=== PATIENT | female | born 1990 | race American Indian/Alaskan Native ===

== ENCOUNTER 2020-01-18 21:15 | Emergency (ER) | payer MEDICAID, OTHER ==
[2020-01-18 21:51] VITALS: BP 152/91
[2020-01-18] MEDS ORDERED: BALANCED SALT IRRIG 1 DROPS, TETRACAINE 0.5% 1 DROPS, FLUORESCEIN 1 MG OD ONE (22:46)
[2020-01-18] MEDS ORDERED: FLUORESCEIN 1 MG STRIP OP ONE (22:51)
[2020-01-18] MEDS ORDERED: TETRACAINE 0.5% OPHTH SOLN 4ML ONE (22:51)
--- NOTE | 2020-01-18 23:47 | Emergency Department Report ---
ED Eye Problem HPI - General Chief complaint: Eye Problems Stated complaint: TENDER PAIN IN RT EYE,RED DOTS IN VISION Time Seen by Provider: 01/18/20 22:43 Source: patient Mode of arrival: Ambulatory Limitations: No Limitations - History of Present Illness Initial comments: 29-year-old female with no significant past medical history presents to the hosp ital planing of right eye pain and blurred vision as well as intermittent right ear tinnitus. Patient has had periorbital tenderness to her right eye for the past 4 days. Pain worse with movement of eye in any direction with exception of looking straight. Patient started seeing red dots in her visual field today and having intermittent blurry vision. She does not wear glasses or contacts. No trauma reported. Patient states that for the last 2 years she has had intermittent ringing to the right ear which has not been investigated by a physician/ENT doctor. Ringing is becoming more persistent and occurring more frequently. No reports of fever. She reports that her mother has had an aneurysm and that is why she is concerned about her current symptom. Patient reports having a headache that lasted for about an hour about 3 days ago and denies current or recurrent headache. - Related Data Home Medications Medication Instructions Recorded Confirmed Last Taken Pnv with Ca,No.72/Iron/FA 1 tab PO DAILY 12/21/13 12/21/13 12/19/13 08:00 [ Plus Tablet] 1 tab Previous Rx's Medication Instructions Recorded Last Taken Type Ferrous Sulfate [Feosol 325 MG tab] 325 mg PO BID #60 tablet 12/22/13 Unknown Rx Ibuprofen [Motrin 600 MG tab] 800 mg PO Q8H PRN #30 tablet 12/22/13 Unknown Rx Vit-Fe Fumar-FA [ 1 each PO QDAY #30 tablet 12/22/13 Unknown Rx Vitamin] Allergies Allergy/AdvReac Type Severity Reaction Status Date / Time ketazolam AdvReac Intermediate Shortness Unverified 12/21/13 10:51 of Breath sulfamethoxazole AdvReac Intermediate Hives Unverified 12/21/13 10:50 [From Bactrim] trimethoprim [From Bactrim] AdvReac Intermediate Hives Unverified 12/21/13 10:50 ED Review of Systems ROS: Stated complaint: TENDER PAIN IN RT EYE,RED DOTS IN VISION Other details as noted in HPI Comment: All other systems reviewed and negative ED Past Medical Hx - Past Medical History Previous Medical History?: Yes Hx Hypertension: No Hx Congestive Heart Failure: No Hx Diabetes: No Hx Deep Vein Thrombosis: No Hx Renal Disease: No Hx Sickle Cell Disease: No Hx Seizures: No Hx Asthma: No Hx COPD: No Hx HIV: No Additional medical history: Ringing In ears. - Surgical History Past Surgical History?: Yes Additional Surgical History: Bilateral Breast Reduction. - Social History Smoking Status: Former Smoker Substance Use Type: Alcohol - Medications Home Medications: Home Medications Medication Instructions Recorded Confirmed Last Taken Type Pnv with Ca,No.72/Iron/FA 1 tab PO DAILY 12/21/13 12/21/13 12/19/13 08:00 History [ Plus Tablet] 1 tab Ferrous Sulfate [Feosol 325 MG tab] 325 mg PO BID #60 tablet 12/22/13 Unknown Rx Ibuprofen [Motrin 600 MG tab] 800 mg PO Q8H PRN #30 tablet 12/22/13 Unknown Rx Vit-Fe Fumar-FA [ 1 each PO QDAY #30 tablet 12/22/13 Unknown Rx Vitamin] ED Physical Exam - General Limitations: No Limitations - Other Other exam information: General: No acute distress Head: Atraumatic Eyes: normal appearance, no conjunctival injection, pupils equal reactive to light, extraocular movements intact, no fluorescein uptake with staining, mild periorbital tenderness without edema or erythema. Visual acuity right eye 20/25, left eye 20/20, bilateral 20/20 ENT: Moist mucous membranes, bilateral TM normal with good light reflex without erythema or fluid Neck: Normal appearance, no midline tenderness, no nuchal rigidity Chest: Clear to auscultation bilaterally CV: Regular rate and rhythm Abdomen: Soft, normal bowel sounds, nontender, nondistended, no rebound or gu arding Back: Normal inspection Extremity: Normal inspection, full range of motion Neuro: Alert O x 3, no facial asymmetry, speech clear, no gross motor sensory deficit Psych: Appropriate behavior Skin: No rash ED Course Vital Signs 01/18/20 01/18/20 01/18/20 21:44 22:07 23:05 Temperature 98.5 F 98.5 F Pulse Rate 94 H 96 H Respiratory 18 18 18 Rate Blood Pressure 152/91 152/91 O2 Sat by Pulse 100 100 100 Oximetry ED Medical Decision Making - Radiology Data Radiology results: report reviewed CT HEAD WITHOUT CONTRAST HISTORY: MAIN: ringing right ear, intermittent HEADACHE COMPARISON: None TECHNIQUE: CT imaging of the head was performed in the axial, sagittal, and coronal projections and bone algorithm in axial projection in the soft tissue algorithm. All CT scans at this location are performed using CT dose reduction for ALARA by means of automated exposure control. CONTRAST: None. FINDINGS: Cerebral and Cerebellar Hemispheres: No evidence of mass or mass effect. No midline shift. No acute hemorrhage. No acute cortical infarction. No extra-axial fluid collection. Ventricles: Normal in size and configuration for age. Osseous Structures: No significant abnormality. Visualized Paranasal Sinuses: No significant abnormality. Additional Findings: None IMPRESSION: 1. No acute intracranial abnormality. NOTE: Acute infarct may not be visible by noncontrast CT. CLINICAL DATA: MAIN: right eye pain with movement, HEADACHES TECHNICAL DATA: CT imaging of the orbits was performed without intravenous contrast with reformations in the axial, sagittal, and coronal imaging planes using both soft tissue and bone algorithm.All CT scans at this location are performed using CT dose reduction for ALARA by means of automated exposure control FINDINGS: The orbital uribe appear to be intact. There is no evidence of zygomatic arch fracture. The surrounding paranasal sinuses are well aerated. There is no evidence of a fracture or dislocation. The bony architecture is normal. IMPRESSION: Normal CT of the orbits without intravenous contrast. If clinical symptoms persist MR of the orbits with contrast is recommended. - Medical Decision Making No gross abnormality identified on noncontrast CT head or orbits. Patient does not have fever or clinical symptoms of cellulitis. Patient reports blurry vision with affected eye 20/25 vision and no fluorescein uptake. Unfortunate is unable to obtain eye pressures due to malfunctioning Memo-Pen. Patient clinically does not have symptoms of acute closed angle glaucoma. Patient will be instructed to follow-up with ophthalmology and ENT for further outpatient work-up. She declined offer for pain medication in the ED will be instructed take [id number] medicine as needed for pain - Differential Diagnosis Optic neuritis, retro-orbital mass, periorbital cellulitis, intracranial le Critical Care Time: No Critical care attestation.: If time is entered above; I have spent that time in minutes in the direct care of this critically ill patient, excluding procedure time. ED Disposition Clinical Impression: Pain in periorbital region of right eye, Tinnitus, right ear Disposition: TO HOME OR SELFCARE Is pt being admited?: No Does the pt Need Aspirin: No Condition: Stable Instructions: Eye Pain (ED), Earache (ED) Additional Instructions: Take [id number] medication as needed for pain. follow-up with your doctor or doctor/clinic provided. 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 Return if symptoms worsen as indicated by your discharge instructions. Referrals: PRIMARY CARE, [Primary Care Provider] - 3-5 Days MARLENE MAGAÑA MD [Staff Physician] - 3-5 Days (Primary care doctor) MOR BERGMAN MD [Staff Physician] - 3-5 Days (Eye doctor) ALCON AL MD [Staff Physician] - 3-5 Days (Eye doctor) OCTAVIANO LARSON MD [Staff Physician] - 3-5 Days (Eye doctor) ANGELICA HANKS MD [Staff Physician] - 3-5 Days (Ear nose and throat doctor) Time of Disposition: 00:46
--- NOTE | 2020-01-19 00:37 | Cat Scan Report ---
CT HEAD WITHOUT CONTRAST HISTORY: MAIN: ringing right ear, intermittent HEADACHE COMPARISON: None TECHNIQUE: CT imaging of the head was performed in the axial, sagittal, and coronal projections and bone algori thm in axial projection in the soft tissue algorithm. All CT scans at this location are performed using CT dose reduction for ALARA by means of automated e xposure control. CONTRAST: None. FINDINGS: Cerebral and Cerebellar Hemispheres: No evidence of mass or mass effect. No midline shift. No acute hemorrhage. No acute cortical infarction. No extra-axial fluid collection. Ventricles: Normal in size and configuration for age. Osseous Structures: No significant abnormality. Visualized Paranasal Sinuses: No significant abnormality. Additional Findings: None IMPRESSION: 1. No acute intracranial abnormality. NOTE: Acute infarct may not be visible by noncontrast CT. Signer Name: Donny Michele MD Signed: 01/19/2020 12:33 AM Workstation Name: [id number]
--- NOTE | 2020-01-19 00:39 | Cat Scan Report ---
CLINICAL DATA: MAIN: right eye pain with movement, HEADACHES TECHNICAL DATA: CT imaging of the orbits was performed without intravenous contrast with reformations in the axial, s agittal, and coronal imaging planes using both soft tissue and bone algorithm.All CT [facility] are performed using CT dose reduction for ALARA by means of automated exposure control FINDINGS: The orbital uribe appear to be intact. There is no evidence of zygomatic arch fracture. The surroun ding paranasal sinuses are well aerated. There is no evidence of a fracture or dislocation. The bon y architecture is normal. IMPRESSION: Normal CT of the orbits without intravenous contrast. If clinical symptoms persist MR of the orbits w ith contrast is recommended. Signer Name: Donny Michele MD Signed: 01/19/2020 12:35 AM Workstation Name: [id number]
== END 2020-01-19 00:53 | disposition home or self-care (01) ==
LOC: ED 21:15
DX: H57.11 Ocular pain, right eye (principal); H93.11 Tinnitus, right ear; Z79.899 Other long term (current) drug therapy; Z88.2 Allergy status to sulfonamides; Z88.8 Allergy status to other drugs, medicaments and biological substances; Z98.890 Other specified postprocedural states; Z87.891 Personal history of nicotine dependence
CPT/HCPCS: 70450; 70480; 99283